=== PATIENT | male | born 1970 | race African-American/Black ===

== ENCOUNTER 2021-09-10 11:15 | Inpatient (IN) | payer OTHER ==
[2021-09-10] MEDS ORDERED: METHOCARBAMOL 500 MG TABLET PO PRN (12:34)
[2021-09-10] MEDS ORDERED: NICOTINE 10 MG CARTRIDGE (INHALER) IH PRN (12:34)
[2021-09-10] MEDS ORDERED: MAG HYDROX/AL HYDROX/SIMETH 30 ML UNIT-DOSE CUP PO PRN (12:34)
[2021-09-10] MEDS ORDERED: MAGNESIUM CITRATE 300 ML BOTTLE PO PRN (12:34)
[2021-09-10] MEDS ORDERED: MAGNESIUM HYDROX 2400MG/30ML ORAL SUSPENSION 30 ML CUP PO PRN (12:34)
[2021-09-10] MEDS ORDERED: ACETAMINOPHEN 325 MG TABLET (FP) PO PRN ×2 (12:34)
[2021-09-10] MEDS ORDERED: MENTHOL/PHENOL 1 EACH UD MM PRN (12:34)
[2021-09-10] MEDS ORDERED: IBUPROFEN 400 MG TABLET (FP) PO PRN (12:34)
[2021-09-10] MEDS ORDERED: BISMUTH SUBSALICYLATE 262 MG/15 ML BTL PO PRN (12:34)
[2021-09-10] MEDS ORDERED: ONDANSETRON *ODT* 4 MG TABLET SL PRN (12:34)
[2021-09-10 12:45] VITALS: BMI 31.4
[2021-09-10] MEDS: hydrOXYzine PAMOATE 25 MG CAPSULE (FP) PO SCH ×3 (14:38→22:14)
[2021-09-10] MEDS ORDERED: ALBUTEROL SO4 HFA INHALER IH PRN (15:00)
[2021-09-10 16:53] LABS: HEMATOCRIT 37.5 % (35.4-49); HEMOGLOBIN 12.8 GM/dL (11.7-16.9); MEAN CELL VOLUME 88.3 fl (80-96); MEAN PLT VOLUME 8.5 fl (7.5-11.1); PLATELET COUNT 352 10^3/uL (134-434); RBC 4.25 M/mm3 (4.00-5.60); RDW 15.8 % (11.9-15.9); WHITE BLOOD COUNT 5.2 K/mm3 (4.0-10.0)
[2021-09-10 16:56] LABS: ALBUMIN 3.9 g/dl (3.4-5.0); BLOOD UREA NITROGEN 13.6 mg/dL (7-18); CALCIUM 9.9 mg/dL (8.5-10.1)
[2021-09-10 17:00] LABS: CREATININE 1.1 mg/dL (0.55-1.3)
[2021-09-10 17:01] LABS: BILIRUBIN,TOTAL 0.5 mg/dL (0.2-1)
[2021-09-10 17:43] LABS: HIV INTERPRETATION NEGATIVE (NEGATIVE)
[2021-09-10] MEDS ORDERED: MELATONIN 5 MG TABLETS PO SCH (22:00)
[2021-09-10] MEDS ORDERED: THIAMINE HCL 100 MG TABLET (FP) PO SCH (22:00)
[2021-09-11] MEDS: hydrOXYzine PAMOATE 25 MG CAPSULE (FP) PO SCH ×3 (05:34→13:39)
[2021-09-11] MEDS ORDERED: PRENATAL VITAMINS W/ FOLIC ACID TABLET (FP) PO SCH (10:00)
[2021-09-11] MEDS ORDERED: diazePAM 5 MG TABLET PO SCH (11:00)
[2021-09-11] MEDS ORDERED: diazePAM 5 MG TABLET PO PRN (12:04)
[2021-09-11 13:18] VITALS: BP 148/89; PULSE 67; TEMP 97.1
[2021-09-13] MEDS ORDERED: diazePAM 5 MG TABLET PO SCH (06:00)
[2021-09-14] MEDS ORDERED: diazePAM 5 MG TABLET PO SCH (06:00)
[2021-09-15] MEDS ORDERED: diazePAM 5 MG TABLET PO ONE (06:00)
== END 2021-09-11 14:20 | disposition left against medical advice (07) | DRG 770 ==
LOC: YASAS 11:15 → Y3N 12:52
PROVIDERS: ADMIT Allergy & Immunology; ATTEND Allergy & Immunology
PROC: HZ2ZZZZ Detoxification Services for Substance Abuse Treatment (ICD-10-PCS; principal; 2021-09-10)
DX: F10.230 Alcohol dependence with withdrawal, uncomplicated (principal); F14.20 Cocaine dependence, uncomplicated; F12.20 Cannabis dependence, uncomplicated; F17.210 Nicotine dependence, cigarettes, uncomplicated; J45.909 Unspecified asthma, uncomplicated; Z56.0 Unemployment, unspecified
CPT/HCPCS: 36415; 80053; 85027; 86780; 87389; 93005; 93010; C9803; U0003; U0005